=== PATIENT | female | born 1990 | race Caucasian/White ===

== ENCOUNTER → 2020-11-26 | Outpatient (CLI) | payer OTHER ==
[2020-11-27 07:11] LABS: HBSAG SCREEN Negative (Negative); HCV AB <0.1 (0.0-0.9); HEP B CORE AB, TOT Negative (Negative)
[2020-11-27 08:14] LABS: RHEUMATOID ARTHRITIS FACTOR <10.0 IU/mL (0.0-13.9)
[2020-11-29 10:10] LABS: QUANTIFERON MITOGEN VALUE >10.00 IU/mL (.); QUANTIFERON NIL VALUE 0.01 IU/mL (.); QUANTIFERON TB1 AG VALUE 0.01 IU/mL (.); QUANTIFERON TB2 AG VALUE 0.02 IU/mL (.); QUANTIFERON-TB GOLD PLUS Negative (Negative)
== END ==
LOC: LAB 11:34
PROVIDERS: Nurse Practitioner Family
DX: Z11.59 Encounter for screening for other viral diseases (principal); M25.50 Pain in unspecified joint; R76.8 Other specified abnormal immunological findings in serum; D89.9 Disorder involving the immune mechanism, unspecified; M79.10 Myalgia, unspecified site; Z79.899 Other long term (current) drug therapy
CPT/HCPCS: 82550; 82728; 83520; 84439; 84443; 85652; 86140; 86200; 86431; 86704; 86803; 87340

== ENCOUNTER → 2021-06-22 | Outpatient (CLI) | payer OTHER | LOC: MAMO 08:37 | DX: R59.0 Localized enlarged lymph nodes (principal); N63.21 Unspecified lump in the left breast, upper outer quadrant | CPT/HCPCS: 76882; 77065; G0279 ==

== ENCOUNTER → 2022-01-13 | Outpatient (CLI) | payer OTHER ==
[~2022-01-13] VITALS: Ht 157.5 cm; Wt 83.9 kg
[2022-01-13 12:38] LABS: HEMOGLOBIN 14.3 gm/dl (12.3-15.3); RED BLOOD COUNT 5.05 M/UL (4.00-5.10); WHITE BLOOD COUNT 9.1 K/UL (4.5-11.0)
[2022-01-13 13:03] LABS: BUN/CREATININE RATIO 14 (0-10)
== END ==
LOC: OPSV 11:00
PROVIDERS: Internal Medicine Gastroenterology
DX: K51.90 Ulcerative colitis, unspecified, without complications (principal)
CPT/HCPCS: 80053; 85025; 86140; 96375; 96413; 96415; J1720; J1745; J7030

== ENCOUNTER → 2022-01-27 | Outpatient (CLI) | payer OTHER ==
[~2022-01-27] VITALS: Ht 157.5 cm; Wt 83.9 kg
[2022-01-27 10:50] LABS: HEMOGLOBIN 13.8 gm/dl (12.3-15.3); RED BLOOD COUNT 4.97 M/UL (4.00-5.10)
[2022-01-27 11:20] LABS: BUN/CREATININE RATIO 16 (0-10)
== END ==
LOC: OPSV 09:00
PROVIDERS: Internal Medicine Gastroenterology
DX: K51.90 Ulcerative colitis, unspecified, without complications (principal)
CPT/HCPCS: 80053; 85025; 86140; 96375; 96413; 96415; J1720; J1745; J7030